=== PATIENT | male | born 1990 | race African-American/Black ===

== ENCOUNTER 2022-02-22 10:56 | Emergency (ER) | payer SELFPAY ==
[2022-02-22] MEDS ORDERED: Ketorolac Tromethamine 30 MG/ML VIAL ONE (12:57)
[2022-02-22] MEDS ORDERED: Cyclobenzaprine 10 MG TAB ONE (12:58)
== END 2022-02-22 13:58 | disposition home or self-care (01) ==
LOC: CSHERS 10:56
DX: R07.89 Other chest pain (principal); M62.838 Other muscle spasm; Z87.891 Personal history of nicotine dependence; X50.0XXA Overexertion from strenuous movement or load, initial encounter
CPT/HCPCS: 71045; 93005; 96372; J1885